=== PATIENT | male | born 1960 | race Two or more races ===

== ENCOUNTER 2024-02-10 18:56 | Inpatient (IN) | payer OTHER ==
[~2024-02-10] VITALS: Ht 170.2 cm; Wt 115.7 kg
--- NOTE | 2024-02-10 19:17 | NUR ---
SE RECIBE PACIENTE ALERTA Y ORIENTADO X3 REFIERE VENIR POR REFERIDO MEDICO POR [facility] CARDIOLOG[facility] YA QUE TIENE LA HEMOGLOBINA EN 7.5 DE [facility].
[2024-02-10] MEDS ORDERED: LOSARTAN POTAS100 MG PO (19:23)
[2024-02-10] MEDS ORDERED: METOPROLOL SUCC25 MG PO (19:23)
[2024-02-10] MEDS ORDERED: ATORVASTATIN CA40 MG PO (19:23)
[2024-02-10] MEDS ORDERED: CHILDREN'S ASPI81 MG (19:24)
[2024-02-10] MEDS ORDERED: CLOPIDOGREL BIS75 MG PO (19:24)
[2024-02-10] MEDS ORDERED: VITAMIN D31250 MCG PO (19:24)
[2024-02-10] MEDS ORDERED: [UNRECOGNIZED DRUG - OTHER] (19:24)
[2024-02-10 20:27] LABS: HEMATOCRIT 23.7 % (39.0-48.0); MEAN CORPUSCULAR HGB CONC 30.4 g/dl (32.0-36.0); PLATELET COUNT 318 K/uL (150-450); RED BLOOD COUNT 3.64 M/uL (4.00-6.00); RED CELL DISTRIBUTION WIDTH 22.7 % (11.5-14.5)
[2024-02-10 20:28] LABS: MEAN CELL VOLUME 65.1 fL (80.0-100.00); MEAN CORPUSCULAR HEMOGLOBIN 19.7 pg (27.00-32.0)
[2024-02-10 20:29] LABS: HEMOGLOBIN 7.2 g/dL (13-16.00)
[2024-02-10 20:38] LABS: URINE APPEARANCE Clear; URINE BILIRRUBIN Negative (NEGATIVE); URINE BLOOD Negative; URINE COLOR Yellow; URINE GLUCOSE Negative (NEGATIVE); URINE KETONE Negative (NEGATIVE); URINE LEUKOCYTE Negative; URINE NITRATE Negative; URINE PROTEIN Negative (NEGATIVE); URINE UROBILINOGEN 0.2 E.U./dl
[2024-02-10 20:41] LABS: URINE EPITHELIAL CELLS 1.5 uL (0.0-38.8)
[2024-02-10 20:45] LABS: PARTIAL THROMBOPLASTIN TIME 25.1 SECONDS (22.0-34.0); PROTHROMBIN TIME 10.9 SECONDS (9.0-11.5)
[2024-02-10 20:51] LABS: ALBUMIN 3.7 gm/dL (3.4-5.0); BILIRUBIN TOTAL 0.25 mg/dL (0.3-1.2); CALCIUM 9.3 mg/dL (8.5-10.1); CREATININE SERUM 1.16 mg/dL (0.70-1.30); GFR 63.19; GLOBULINA 4.1 G/DL (2.4-3.5); POTASSIUM 4.19 mEq/L (3.5-5.1); TOTAL PROTEIN 7.8 gm/dL (6.4-8.2)
[2024-02-10 21:05] LABS: URINE CAST 0.15 uL (0.0-1.40); URINE RBC 0.6 uL (0.0-20.8); URINE WBC 0.4 uL (0.0-23.2)
[2024-02-10] MEDS ORDERED: METHYLPREDNISOLONE SOD SUCC 40 MG VIAL IV PRN (22:00)
[2024-02-10] MEDS ORDERED: 0.9 % SODIUM CHLORIDE 1,000 ML IV SCH (22:00)
[2024-02-10] MEDS ORDERED: DIPHENHYDRAMINE HCL 50 MG/ML VIAL 1ML IV PRN (22:00)
[2024-02-10] MEDS ORDERED: FUROsemide 20 MG/2 ML VIAL IV SCH (22:00)
[2024-02-10] MEDS ORDERED: ONDANSETRON HCL 4 MG in DEXTROSE 5 % IN WATER 50 ML IV PRN (22:15)
[2024-02-10] MEDS ORDERED: MORPHINE SULFATE 2 MG/ML CARTRIDGE IV PRN (22:15)
[2024-02-10] MEDS ORDERED: ACETAMINOPHEN 500 MG GEL..CAP PO PRN (22:15)
[2024-02-10] MEDS ORDERED: ENALAPRILAT DIHYDRATE 1.25 MG/ML VIAL IV PRN (23:15)
[2024-02-11 00:23] VITALS: BP 131/83; O2SAT 96
[2024-02-11 00:31] VITALS: BP 125/69
[2024-02-11 06:05] LABS: PLATELET COUNT 318 K/uL (150-450); RED CELL DISTRIBUTION WIDTH 22.1 % (11.5-14.5)
[2024-02-11 06:06] LABS: HEMOGLOBIN 7.2 g/dL (13-16.00); MEAN CELL VOLUME 65.1 fL (80.0-100.00); MEAN CORPUSCULAR HEMOGLOBIN 19.4 pg (27.00-32.0)
[2024-02-11 06:11] LABS: ERYTHROCYTE SEDIMENTATION RATE 101 mm/hr
[2024-02-11 06:19] LABS: PARTIAL THROMBOPLASTIN TIME 26.1 SECONDS (22.0-34.0); PROTHROMBIN TIME 10.9 SECONDS (9.0-11.5)
[2024-02-11 06:25] LABS: ALBUMIN 3.7 gm/dL (3.4-5.0); BILIRUBIN TOTAL 0.29 mg/dL (0.3-1.2); BILIRUBIN,CONJUGATED 0.1 mg/dL (0.0-0.2); BILIRUBIN,UNCONJUGATED 0.19 mg/dL (0.0-0.6); CALCIUM 9.8 mg/dL (8.5-10.1); CHOL HDL RATIO 3.2 (0-5.0); CREATININE SERUM 0.98 mg/dL (0.70-1.30); GFR 76.76; GLOBULINA 3.5 G/DL (2.4-3.5); POTASSIUM 4.31 mEq/L (3.5-5.1); TOTAL PROTEIN 7.2 gm/dL (6.4-8.2)
[2024-02-11 06:26] LABS: C-REACTIVE PROTEIN 0.42 MG/DL (0.00-0.29)
[2024-02-11 07:56] VITALS: BP 129/75; O2SAT 100
[2024-02-11] MEDS ORDERED: ATORVASTATIN CALCIUM 40 MG TABLET PO SCH (09:00)
[2024-02-11] MEDS ORDERED: LOSARTAN POTASSIUM 100 MG TABLET PO SCH (09:00)
[2024-02-11] MEDS ORDERED: PANTOPRAZOLE SODIUM 40 MG in 0.9 % SODIUM CHLORIDE 8 ML IV PUSH SCH (09:00)
[2024-02-11] MEDS ORDERED: METOPROLOL SUCCINATE 25 MG TAB.SR.24H PO SCH (09:00)
[2024-02-11 14:48] LABS: URINE APPEARANCE Clear; URINE BILIRRUBIN Negative (NEGATIVE); URINE BLOOD Negative; URINE COLOR Yellow; URINE GLUCOSE Negative (NEGATIVE); URINE KETONE Negative (NEGATIVE); URINE LEUKOCYTE Negative; URINE NITRATE Negative; URINE PROTEIN Negative (NEGATIVE); URINE UROBILINOGEN 0.2 E.U./dl
[2024-02-11 14:52] LABS: URINE BACTERIA 8.8 uL (0.0-1933); URINE RBC 2.2 uL (0.0-20.8)
[2024-02-11 15:00] VITALS: BP 135/82; O2SAT 92
[2024-02-11 15:04] LABS: URINE EPITHELIAL CELLS 0.5 uL (0.0-38.8); URINE WBC 0.2 uL (0.0-23.2)
[2024-02-11 15:10] VITALS: O2SAT 99
[2024-02-11] MEDS ORDERED: METHYLPREDNISOLONE SOD SUCC 40 MG VIAL IV ONE (19:30)
[2024-02-11] MEDS ORDERED: DIPHENHYDRAMINE HCL 50 MG/ML VIAL 1ML IV ONE (19:30)
[2024-02-11 20:24] LABS: ob POSITIVE (NEGATIVE)
[2024-02-12 00:15] VITALS: BP 140/67; O2SAT 98
[2024-02-12 10:11] VITALS: BP 115/78; O2SAT 98
[2024-02-12 16:21] VITALS: BP 115/74; O2SAT 100
[2024-02-12] MEDS ORDERED: Cyanocobalamin/Mecobalamin 1 TAB.SL SL SCH (16:45)
[2024-02-12] MEDS ORDERED: SOD FERRIC GLUC COMPLX/SUCROSE 125 MG in 0.9 % SODIUM CHLORIDE 100 ML IV SCH (16:45)
[2024-02-12] MEDS ORDERED: SODIUM CHLORIDE 0.45 % 1,000 ML IV SCH (17:00)
[2024-02-12 18:13] LABS: HEMATOCRIT 33.3 % (39.0-48.0); MEAN CORPUSCULAR HEMOGLOBIN 21.2 pg (27.00-32.0); MEAN CORPUSCULAR HGB CONC 30.6 g/dl (32.0-36.0); PLATELET COUNT 379 K/uL (150-450); RED CELL DISTRIBUTION WIDTH 24.9 % (11.5-14.5)
[2024-02-12 18:37] LABS: MEAN CELL VOLUME 69.3 fL (80.0-100.00)
[2024-02-12 18:38] LABS: HEMOGLOBIN 10.2 g/dL (13-16.00)
[2024-02-12 22:38] VITALS: O2SAT 97
[2024-02-13 01:20] VITALS: BP 142/85; O2SAT 97
[2024-02-13 02:08] VITALS: O2SAT 95
[2024-02-13 06:40] VITALS: O2SAT 90
[2024-02-13] MEDS ORDERED: ISOSORBIDE MONONITRATE 30 MG TABLET PO SCH (09:00)
[2024-02-13] MEDS ORDERED: SOD FERRIC GLUC COMPLX/SUCROSE 62.5 MG in 0.9 % SODIUM CHLORIDE 50 ML IV SCH (09:00)
[2024-02-13 10:00] VITALS: BP 146/85; O2SAT 97
[2024-02-13 10:08] VITALS: O2SAT 91
[2024-02-13] MEDS ORDERED: LOSARTAN POTAS100 MG PO (13:17)
[2024-02-13] MEDS ORDERED: ATORVASTATIN CA40 MG PO (13:17)
[2024-02-13] MEDS ORDERED: CLOPIDOGREL BIS75 MG PO (13:17)
[2024-02-13] MEDS ORDERED: TOPROL XL25 M1 PO (13:18)
[2024-02-13 14:05] VITALS: O2SAT 100
== END 2024-02-13 15:24 | disposition home or self-care (01) | DRG 812 ==
LOC: ER 18:58 → SEC-K 22:36 → MEDJ 22:36 → SEC-K 22:49 → MEDI 02-12 20:13
PROVIDERS: General Practice; ADMIT Internal Medicine; ATTEND Internal Medicine
PROC: BW21YZZ Computerized Tomography (CT Scan) of Abdomen and Pelvis using Other Contrast (ICD-10-PCS; principal; 2024-02-10)
PROC: BW30YZZ Magnetic Resonance Imaging (MRI) of Abdomen using Other Contrast (ICD-10-PCS; 2024-02-11)
PROC: 30233N1 Transfusion of Nonautologous Red Blood Cells into Peripheral Vein, Percutaneous Approach (ICD-10-PCS; 2024-02-11)
PROC: 4A12X4Z Monitoring of Cardiac Electrical Activity, External Approach (ICD-10-PCS; 2024-02-12)
DX: D64.9 Anemia, unspecified (principal); I25.10 Atherosclerotic heart disease of native coronary artery without angina pectoris; I11.9 Hypertensive heart disease without heart failure; E78.5 Hyperlipidemia, unspecified
CPT/HCPCS: 74182